=== PATIENT | female | born 1960 | race Two or more races ===

== ENCOUNTER 2024-04-26 07:31 | Inpatient (IN) | payer OTHER ==
[~2024-04-26] VITALS: Ht 152.4 cm; Wt 112.5 kg
[2024-04-26] VITALS (7 sets, daily range): BP systolic 84–113; BP diastolic 67–96; O2SAT 95–100
--- NOTE | 2024-04-26 07:42 | NUR ---
SE RECIBE PACIENTE Y ALERTA ORIENTADO X3 REFIERE VENIR POR FATIGA Y DIFICULTAD RESPIRATORIA A LA ACTIVIDAD QUE INICIO HACE K[place] SEMANA [place] DE [place] PASADO VIRUS DE GRIPE. SE OBSERVA A PACIENTE JADEANDO. PUEDE HABLAR EN FRASES COMPLETAS. NO REFIERE DOLOR DE PECHO. TIENE HX DE ARRITMIAS. FRECUENCIA RESPIRATORIA: 25 LPM, SATURACION DE OXIGENO 96%, FRECUENCIA CARDIACA: 114-120, PRESION ARTERIAL: 102/79MM/HR, MAP (83), TEMP 96.0. SE OBSERVA EDEMA EN EXTREMIDADES INFERIORES.
[2024-04-26] MEDS ORDERED: AMLODIPINE-OLM1 EAC3 (08:08)
[2024-04-26] MEDS ORDERED: TOPROL XL100 M1 (08:08)
[2024-04-26] MEDS ORDERED: CARVEDILOL ER40 MG PO (08:09)
[2024-04-26] MEDS ORDERED: HYDRALAZINE HCL50 MG PO (08:10)
[2024-04-26] MEDS ORDERED: LASIX20 MG (08:10)
[2024-04-26] MEDS ORDERED: DOXAZOSIN MESYLA2 MG PO (08:11)
[2024-04-26] MEDS ORDERED: ASA-BUTALB-CAF1 EACH (08:11)
[2024-04-26] MEDS ORDERED: LIPITOR20 MG PO (08:11)
--- NOTE | 2024-04-26 08:11 | NUR ---
SE PRESENTA EKG Y SITUACION CLINICA DE PACIENTE A QUIEN DA ORDEN DE COLOCAR A PACIENTE EN MONITOR CARDIACO
[2024-04-26] MEDS ORDERED: SODIUM CHLORIDE 0.45 % 1,000 ML IV STA (08:25)
[2024-04-26] MEDS ORDERED: METHYLPREDNISOLONE SOD SUCC 125 MG VIAL IV STA (08:26)
[2024-04-26] MEDS ORDERED: HYDROCODONE/CHLORPHEN P-STIREX 5 ML ML PO STA (08:27)
[2024-04-26 08:50] LABS: HEMATOCRIT 34.4 % (36.0-45.00); HEMOGLOBIN 11.1 g/dL (12.0-15.00); MEAN CELL VOLUME 79.1 fL (80.00-100.00); MEAN CORPUSCULAR HEMOGLOBIN 25.6 pg (27.00-32.0); MEAN CORPUSCULAR HGB CONC 32.4 g/dl (32.0-36.0); PLATELET COUNT 234 K/uL (150-450); RED BLOOD COUNT 4.34 M/uL (4.00-6.00); RED CELL DISTRIBUTION WIDTH 15.9 % (11.5-14.5)
[2024-04-26] MEDS ORDERED: ALBUTEROL SULFATE 3 ML/2.5 MG AMPUL.NEB IH SCH (09:00)
[2024-04-26] MEDS ORDERED: FUROsemide 40 MG/4 ML VIAL IV ONE (09:15)
[2024-04-26] MEDS ORDERED: DILTIAZEM HCL 25 MG/5 ML VIAL IV ONE (09:15)
[2024-04-26 09:22] LABS: INR 1.22; PARTIAL THROMBOPLASTIN TIME 21.9 SECONDS (22.0-34.0); PROTHROMBIN TIME 13.1 SECONDS (9.0-11.5)
[2024-04-26 09:28] LABS: ALBUMIN 3.5 gm/dL (3.4-5.0); BILIRUBIN TOTAL 0.58 mg/dL (0.3-1.2); CALCIUM 8.7 mg/dL (8.5-10.1); CREATININE SERUM 2.01 mg/dL (0.55-1.02); GFR 24.78; GLOBULINA 3.4 G/DL (2.4-3.5); POTASSIUM 3.84 mEq/L (3.5-5.1); TOTAL PROTEIN 6.9 gm/dL (6.4-8.2)
[2024-04-26] MEDS ORDERED: LEVALBUTEROL HCL 1.25 MG/3 ML SOLUTION IH SCH (09:44)
--- NOTE | 2024-04-26 09:46 | NUR ---
SE RECIEB PTE ALERTA Y ORIENTADA X3 A UNIDAD DE CRITICO SE CONECTA A PTE A MONITOR CARDIACO Y OXIMETRIA DE PULSO CONTINUA SE COLOCA CANULA NASAL A 2LT/MIN. SE CANALIZA A PTE EN AQUILES SUERO CON #18. SE REALIZAN ORDENES DE LABORATORIO PENDIENTES Y ADMINISTRACION DE MEDICAMENTOS. SE COLOCA SONDA URINARIA PEREZ BAJO MEDIDAS ASEPTICAS Y ESTERILES
[2024-04-26 10:50] LABS: URINE APPEARANCE Cloudy; URINE BILIRRUBIN Negative (NEGATIVE); URINE BLOOD Trace; URINE COLOR Dark Yellow; URINE GLUCOSE Negative (NEGATIVE); URINE KETONE Negative (NEGATIVE); URINE LEUKOCYTE Moderate; URINE NITRATE Negative
[2024-04-26 10:54] LABS: URINE BACTERIA 2132.1 uL (0.0-1933); URINE CAST 12.52 uL (0.0-1.40); URINE EPITHELIAL CELLS 47.3 uL (0.0-38.8); URINE RBC 7.6 uL (0.0-20.8); URINE WBC 339.2 uL (0.0-23.2)
[2024-04-26 11:05] LABS: URINE CRYSTALS FEW /HPF; URINE PROTEIN 100 (NEGATIVE)
[2024-04-26] MEDS ORDERED: NITROGLYCERIN IN 5 % DEXTROSE 250 ML IV SCH (13:00)
[2024-04-26] MEDS ORDERED: DILTIAZEM HCL 125 MG in 0.9 % SODIUM CHLORIDE 100 ML IV SCH (13:15)
[2024-04-26 15:07] LABS: ABG PH 7.404 (7.35-7.45); ABG PO2 86.2 mmHg (80-100); ABG pCO2 28.6 mmHg (35-45); BASE EXCESS -5.7 mmol/l; BICARBONATE 17.5 mmol/l (23-25); SaO2 96.4 %; Tco2 18.4 mmol/l; o2 28 %; puncture site RADIAL RIGHT
[2024-04-26 15:08] LABS: allen test SATISFACTORY
--- NOTE | 2024-04-26 15:23 | NUR ---
1515 SE RECIBE PTE ALERTA Y ORIENTADA X3 EN CAMA #3 DE LA UNIDAD DE CRITICO, CON BARANDAS ELEVADAS Y FRENOS POR SEGURIDAD, CONECTADA A MONITOR CARDIACO Y OXIMETRIA DE PUL[place] CONTINUA PRESENTANDO SIGNOS VITALES YA REPORTADOS EN SISTEMA. SE OBSERVA PTE CON CANULA NASAL A 3 LT/MIN, LA CUAL TOLERA, CANALIZADA EN BRAZO PIO CON ANGIOS #18 Y #24, CANALIZADA EN BRAZO DERECHO CON ANGIO #24, LOS CUALES ESTAN PATENTES, LIBRES DE EDEMA Y ERITEMA, RECIBIENDO TRIDIL 50MG/250ML BAJANDO A 3 MLS/HR, DRIP DE CARDIZEM 125MG/100ML BAJANDO A 5 MLS/HR Y 0.45%NSS BAJANDO A 60 MLS/HR. SE OBSERVA ABDOMEN SIN DISTENDIR, BLANDO Y DEPRESIBLE AL PALPAR, CON PEREZ CATHETER BAJANDO A GRAVEDAD PRESENTANDO EGRESO URINARIO AMARILLO BRENNA Y SIN SEDIMENTOS AL MOMENTO. EXTREMIDADES INFERIORES SIN HALLAZGO RELEVANTE. PTE REFIERE QUE ANTES ESTABAN INFLAMADAS Y NIEGA DOLOR O [employer] EN GENERAL. SE MANTIENE BAJO OBSERVACION POR CAMBIOS EN [place].
[2024-04-26] MEDS ORDERED: ENOXAPARIN SODIUM 100 MG/ML SYRINGE SUBCUTANEO SCH ×2 (17:02→17:25)
[2024-04-26] MEDS ORDERED: FUROsemide 20 MG/2 ML VIAL IV SCH (17:03)
[2024-04-26] MEDS ORDERED: IPRATROPIUM BROMIDE 0.5 MG/2.5 ML AMPUL.NEB IH SCH (17:07)
[2024-04-26] MEDS ORDERED: ACETAMINOPHEN 500 MG GEL..CAP PO PRN (17:15)
[2024-04-26] MEDS ORDERED: AMIODARONE HCL 50 MG/ML AMPUL IV ONE (17:15)
[2024-04-27] VITALS (24 sets, daily range): BP systolic 102–126; BP diastolic 59–107; O2SAT 95–100
[2024-04-27] MEDS ORDERED: FAMOTIDINE/PF 20 MG in 0.9 % SODIUM CHLORIDE 8 ML IV PUSH SCH (09:00)
[2024-04-27 16:57] LABS: FREE TRIODOTIRONINE 1.53 pg/ml (2.18-3.98); T4 FREE 1.12 NG/ML (0.76-1.46)
[2024-04-27 16:58] LABS: TSH 0.301 uIU/mL (0.358-3.74)
[2024-04-27] MEDS ORDERED: CEFTRIAXONE SODIUM 2,000 MG VIAL IV SCH (17:00)
[2024-04-27] MEDS ORDERED: APIXABAN 5 MG TABLET PO SCH (17:00)
[2024-04-28] VITALS (17 sets, daily range): BP systolic 99–137; BP diastolic 62–109; O2SAT 94–98
[2024-04-28 06:28] LABS: HEMATOCRIT 33.2 % (36.0-45.00); HEMOGLOBIN 10.8 g/dL (12.0-15.00); MEAN CELL VOLUME 79.4 fL (80.00-100.00); MEAN CORPUSCULAR HEMOGLOBIN 25.8 pg (27.00-32.0); MEAN CORPUSCULAR HGB CONC 32.4 g/dl (32.0-36.0); PLATELET COUNT 217 K/uL (150-450); RED BLOOD COUNT 4.19 M/uL (4.00-6.00); RED CELL DISTRIBUTION WIDTH 16.1 % (11.5-14.5)
[2024-04-28 07:04] LABS: URINE APPEARANCE Cloudy; URINE BILIRRUBIN Negative (NEGATIVE); URINE BLOOD Large; URINE COLOR Yellow; URINE GLUCOSE Negative (NEGATIVE); URINE KETONE Negative (NEGATIVE); URINE LEUKOCYTE Small; URINE NITRATE Negative; URINE PROTEIN 30 (NEGATIVE); URINE UROBILINOGEN 0.2 E.U./dl
[2024-04-28 07:05] LABS: URINE BACTERIA 567.9 uL (0.0-1933); URINE CAST 3.82 uL (0.0-1.40); URINE RBC 1809.2 uL (0.0-20.8); URINE WBC 90.5 uL (0.0-23.2)
[2024-04-28 07:16] LABS: ALBUMIN 3.4 gm/dL (3.4-5.0); BILIRUBIN TOTAL 0.27 mg/dL (0.3-1.2); CALCIUM 8.3 mg/dL (8.5-10.1); CREATININE SERUM 2.11 mg/dL (0.55-1.02); GFR 23.43; GLOBULINA 3.3 G/DL (2.4-3.5); PHOSPHOROUS 4.4 mg/dL (2.5-4.9); POTASSIUM 3.93 mEq/L (3.5-5.1); TOTAL PROTEIN 6.7 gm/dL (6.4-8.2)
[2024-04-28 07:20] LABS: C-REACTIVE PROTEIN 2.72 MG/DL (0.00-0.29)
[2024-04-28 07:20] LABS: URINE EPITHELIAL CELLS 0-4 /HPF
[2024-04-28] MEDS ORDERED: FUROsemide 20 MG TABLET PO SCH (09:24)
[2024-04-28] MEDS ORDERED: PANTOPRAZOLE SODIUM 40 MG TABLET.DR PO NR (11:00)
[2024-04-28] MEDS ORDERED: CARVEDILOL 3.125 MG TABLET PO NR (11:00)
[2024-04-28] MEDS ORDERED: Cyanocobalamin/Mecobalamin 1 TAB.SL SL NR (11:00)
[2024-04-28] MEDS ORDERED: AMIODARONE HCL 200 MG TABLET PO NR (11:00)
[2024-04-28] MEDS ORDERED: ISOSORBIDE MONONITRATE 30 MG TABLET PO SCH (11:00)
[2024-04-28] MEDS ORDERED: SOD FERRIC GLUC COMPLX/SUCROSE 62.5 MG in 0.9 % SODIUM CHLORIDE 50 ML IV SCH (12:00)
[2024-04-28] MEDS ORDERED: EMPAGLIFLOZIN 10 MG TABLET PO SCH ×2 (17:00)
[2024-04-28] MEDS ORDERED: AMLODIPINE BESYLATE 2.5 MG TABLET PO SCH (17:00)
[2024-04-28] MEDS ORDERED: AMIODARONE HCL 200 MG TABLET PO SCH (17:00)
[2024-04-28] MEDS ORDERED: SPIRONOLACTONE 25 MG TABLET PO SCH (17:00)
[2024-04-28] MEDS ORDERED: CARVEDILOL 6.25 MG TABLET PO SCH (21:00)
[2024-04-28] MEDS ORDERED: CARVEDILOL 3.125 MG TABLET PO SCH (21:00)
[2024-04-28] MEDS ORDERED: ZOLPIDEM TARTRATE 10 MG TABLET PO SCH (21:00)
[2024-04-28] MEDS ORDERED: POLYETHYLENE GLYCOL 3350 17 GM BLIST.PACK PO SCH (21:00)
[2024-04-29] VITALS (18 sets, daily range): BP systolic 104–147; BP diastolic 46–100; O2SAT 92–100
[2024-04-29] MEDS ORDERED: METOPROLOL TARTRATE 25 MG TABLET PO SCH
[2024-04-29 06:09] LABS: HEMATOCRIT 35.4 % (36.0-45.00); HEMOGLOBIN 11.3 g/dL (12.0-15.00); MEAN CELL VOLUME 79.4 fL (80.00-100.00); MEAN CORPUSCULAR HEMOGLOBIN 25.3 pg (27.00-32.0); MEAN CORPUSCULAR HGB CONC 31.9 g/dl (32.0-36.0); PLATELET COUNT 225 K/uL (150-450); RED BLOOD COUNT 4.46 M/uL (4.00-6.00); RED CELL DISTRIBUTION WIDTH 16.2 % (11.5-14.5)
[2024-04-29] MEDS ORDERED: PANTOPRAZOLE SODIUM 40 MG TABLET.DR PO SCH (09:00)
[2024-04-29] MEDS ORDERED: ISOSORBIDE MONONITRATE 30 MG TABLET PO SCH (09:00)
[2024-04-29] MEDS ORDERED: EMPAGLIFLOZIN 10 MG TABLET PO SCH (09:00)
[2024-04-29] MEDS ORDERED: ATORVASTATIN CALCIUM 10 MG TABLET PO SCH (09:00)
[2024-04-29] MEDS ORDERED: FUROsemide 40 MG TABLET PO SCH (09:00)
[2024-04-29] MEDS ORDERED: SACUBITRIL/VALSARTAN 1 EACH TABLET PO SCH (09:00)
[2024-04-29] MEDS ORDERED: Cyanocobalamin/Mecobalamin 1 TAB.SL SL SCH (09:00)
[2024-04-29] MEDS ORDERED: EPOETIN ALFA-EPBX 10,000 UNIT/ML VIAL (Retacrit) SUBCUTANEO SCH (09:00)
[2024-04-29] MEDS ORDERED: BUMETANIDE 2.5 MG/10 ML VIAL IV SCH (17:00)
[2024-04-29] MEDS ORDERED: IPRATROPIUM BROMIDE 0.5 MG/2.5 ML AMPUL.NEB IH SCH (21:00)
[2024-04-29 22:36] LABS: ABG PH 7.434 (7.35-7.45); ABG PO2 90.9 mmHg (80-100); ABG pCO2 32.6 mmHg (35-45); BICARBONATE 21.3 mmol/l (23-25); SaO2 97.2 %; Tco2 22.3 mmol/l
[2024-04-29 22:37] LABS: allen test SATISFACTORY; o2 50 %; puncture site RADIAL RIGHT
[2024-04-30 03:58] VITALS: BP 135/92; O2SAT 95
[2024-04-30 07:43] VITALS: BP 128/99; O2SAT 95
[2024-04-30 12:00] VITALS: BP 106/85; O2SAT 96
[2024-04-30 15:17] VITALS: BP 112/86; O2SAT 100
[2024-04-30 20:00] VITALS: BP 114/81; O2SAT 97
[2024-04-30 23:39] VITALS: BP 122/98; O2SAT 96
[2024-05-01 04:00] VITALS: BP 137/88; O2SAT 95
[2024-05-01 07:07] VITALS: BP 129/99; O2SAT 97
[2024-05-01 07:49] LABS: HEMATOCRIT 33.7 % (36.0-45.00); HEMOGLOBIN 10.5 g/dL (12.0-15.00); MEAN CELL VOLUME 79.8 fL (80.00-100.00); MEAN CORPUSCULAR HEMOGLOBIN 24.9 pg (27.00-32.0); MEAN CORPUSCULAR HGB CONC 31.2 g/dl (32.0-36.0); PLATELET COUNT 213 K/uL (150-450); RED BLOOD COUNT 4.22 M/uL (4.00-6.00); RED CELL DISTRIBUTION WIDTH 16.3 % (11.5-14.5)
[2024-05-01 08:00] LABS: BILIRUBIN TOTAL 0.53 mg/dL (0.3-1.2); CALCIUM 8.5 mg/dL (8.5-10.1); CREATININE SERUM 1.8 mg/dL (0.55-1.02); GFR 28.15; GLOBULINA 3.1 G/DL (2.4-3.5); POTASSIUM 3.65 mEq/L (3.5-5.1); TOTAL PROTEIN 6.1 gm/dL (6.4-8.2)
[2024-05-01 12:00] VITALS: BP 137/87; O2SAT 98
[2024-05-01 15:03] VITALS: BP 145/99; O2SAT 98
[2024-05-01 20:00] VITALS: BP 132/94; O2SAT 99
[2024-05-01 23:37] VITALS: BP 129/95; O2SAT 99
[2024-05-02] VITALS (7 sets, daily range): BP systolic 82–144; BP diastolic 58–93; O2SAT 97–100
[2024-05-02] MEDS ORDERED: SACUBITRIL/VALSARTAN 1 EACH TABLET PO SCH (09:35)
[2024-05-02] MEDS ORDERED: PHENAZOPYRIDINE HCL 100 MG TABLET PO SCH (17:00)
[2024-05-02] MEDS ORDERED: FAMOtidine 20 MG TABLET PO SCH (21:00)
[2024-05-03 00:46] VITALS: O2SAT 99
[2024-05-03 02:12] VITALS: BP 125/74; O2SAT 96
[2024-05-03 07:42] VITALS: BP 124/74; O2SAT 99
[2024-05-03 11:14] VITALS: O2SAT 95
[2024-05-03] MEDS ORDERED: ELIQUIS5 MG PO (13:27)
[2024-05-03] MEDS ORDERED: Lipitor 10MG TABLET PO (13:28)
[2024-05-03] MEDS ORDERED: AMIODARONE HCL200 MG PO (13:28)
[2024-05-03] MEDS ORDERED: ISOSORBIDE MONO30 MG PO (13:29)
[2024-05-03] MEDS ORDERED: LOPRESSOR25 MG PO (13:30)
[2024-05-03] MEDS ORDERED: ENTRESTO 24 MG1 EACH PO (13:30)
[2024-05-03] MEDS ORDERED: SPIRONOLACTONE25 MG PO (13:32)
[2024-05-03] MEDS ORDERED: FAMOTIDINE20 MG PO (13:34)
[2024-05-03] MEDS ORDERED: JARDIANCE10 MG PO (13:35)
[2024-05-03] MEDS ORDERED: Neurin-Sl Tablet Sl SL (13:36)
[2024-05-03 14:05] VITALS: O2SAT 96
== END 2024-05-03 14:58 | disposition home or self-care (01) | DRG 292 ==
LOC: ER 07:33 → ICU-2 18:20 → ICU 18:20 → MEDI 05-02 21:08
PROVIDERS: Internal Medicine; Internal Medicine Infectious Disease; ADMIT Internal Medicine; ATTEND Internal Medicine
PROC: BW24ZZZ Computerized Tomography (CT Scan) of Chest and Abdomen (ICD-10-PCS; principal; 2024-04-27)
PROC: B24BYZZ Ultrasonography of Heart with Aorta using Other Contrast (ICD-10-PCS; 2024-04-27)
PROC: 02HV33Z Insertion of Infusion Device into Superior Vena Cava, Percutaneous Approach (ICD-10-PCS; 2024-04-30)
PROC: 4A12X4Z Monitoring of Cardiac Electrical Activity, External Approach (ICD-10-PCS; 2024-05-02)
DX: I50.9 Heart failure, unspecified (principal); I48.20 Chronic atrial fibrillation, unspecified; N17.9 Acute kidney failure, unspecified; N39.0 Urinary tract infection, site not specified; J90 Pleural effusion, not elsewhere classified; R06.02 Shortness of breath; J45.909 Unspecified asthma, uncomplicated; I25.10 Atherosclerotic heart disease of native coronary artery without angina pectoris; G47.33 Obstructive sleep apnea (adult) (pediatric); E66.01 Morbid (severe) obesity due to excess calories